=== PATIENT | male | born 1995 | race Caucasian/White ===

== ENCOUNTER 2019-06-11 06:29 | Emergency (ER) | payer BC ==
--- NOTE | 2019-06-11 07:12 | EDM.PDOC ---
ED HPI GENERAL MEDICAL PROBLEM - General Chief Complaint: Gastrointestinal Problem Stated Complaint: COUGHING, VOMITING, BLOOD IN STOOL Time Seen by Provider: 06/11/19 07:09 - History of Present Illness INITIAL COMMENTS - FREE TEXT/NARRATIVE: HIST rule outr/oORY AND PHYSICAL: History of present illness: Patient is a 24-year-old white male presents with a concern of rectal bleeding is been without associated pain he was diagnosed recently with sinusitis and put on amoxicillin he's not any prior episodes he denies intermittent constipation diarrhea Review of systems: As per history of present illness and below otherwise all systems reviewed and negative. Past medical history: As per history of present illness and as reviewed below otherwise noncontributory. Surgical history: As per history of present illness and as reviewed below otherwise noncontributory. Social history: No reported history of drug or alcohol abuse. Family history: As per history of present illness and as reviewed below otherwise noncontributory. Physical exam: HEENT: Atraumatic, normocephalic, pupils reactive, negative for conjunctival pallor or scleral icterus, mucous membranes moist, throat clear, neck supple, nontender, trachea midline. Lungs: Clear to auscultation, breath sounds equal bilaterally, chest nontender. Heart: S1S2, regular, negative for clicks, rubs, or JVD. Abdomen: Soft, nondistended, nontender. Negative for masses or hepatosplenomegaly. Negative for costovertebral tenderness. Pelvis: Stable nontender. Genitourinary: Deferred. Rectal: Deferred. Extremities: Atraumatic, negative for cords or calf pain. Neurovascular unremarkable. Neuro: Awake, alert, oriented. Cranial nerves II through XII unremarkable. Cerebellum unremarkable. Motor and sensory unremarkable throughout. Exam nonfocal. Diagnostics: CBC CMP PT/INR influenza screen chest x-ray Hemoccult Therapeutics: None Impression: #1 r/o rectal bleeding #2 history of sinusitis Definitive disposition and diagnosis as appropriate pending reevaluation and review of above. - Related Data Allergies Allergy/AdvReac Type Severity Reaction Status Date / Time No Known Allergies Allergy Verified 06/11/19 06:43 Home Meds: Home Meds Amoxicillin 0 mg PO BID 06/11/19 [History] Benzonatate [Tessalon Perle] 100 mg PO ASDIRECTED 06/11/19 [History] Past Medical History - Past Health History Medical/Surgical History: Denies Medical/Surgical History HEENT History: Reports: None Cardiovascular History: Reports: None Respiratory History: Reports: None Genitourinary History: Reports: None Musculoskeletal History: Reports: None Neurological History: Reports: None Psychiatric History: Reports: None Endocrine/Metabolic History: Reports: None - Infectious Disease History Infectious Disease History: Reports: Chicken Pox, MRSA Social & Family History - Family History Family Medical History: Noncontributory - Tobacco Use Smoking Status *Q: Current Some Day Smoker Years of Tobacco use: 5 Packs/Tins Daily: 0.5 - Recreational Drug Use Recreational Drug Use: No ED ROS GENERAL - Review of Systems Review Of Systems: Comprehensive ROS is negative, except as noted in HPI. ED EXAM, GENERAL - Physical Exam Exam: See Below (See dictation) Course - Vital Signs Last Recorded V/S: Last Vital Signs Temp 36.2 C 06/11/19 06:45 Pulse 80 06/11/19 06:45 Resp 18 06/11/19 06:45 BP 101/56 L 06/11/19 06:45 Pulse Ox 98 06/11/19 06:45 - Orders/Labs/Meds Orders: Active Orders 24 hr Category Date Time Status Fecal Occult Blood Collection [RC] ASDIRECTED Care 06/11/19 07:09 Active Chest 1V Frontal [CR] Stat Exams 06/11/19 07:09 Ordered COMPREHENSIVE METABOLIC PN,CMP [CHEM] Stat Lab 06/11/19 07:18 Received INFLUENZA A+B AG SCREEN [RM] Stat Lab 06/11/19 07:14 Received INR,PT,PROTHROMBIN TIME [COAG] Stat Lab 06/11/19 07:18 Received Labs: Laboratory Tests 06/11/19 Range/Units 07:18 WBC 9.23 (4.0-11.0) K/uL RBC 4.52 (4.50-5.90) M/uL Hgb 13.7 (13.0-17.0) g/dL Hct 39.6 (38.0-50.0) % MCV 87.6 (80.0-98.0) fL MCH 30.3 (27.0-32.0) pg MCHC 34.6 (31.0-37.0) g/dL RDW Std Deviation 41.2 (28.0-62.0) fl RDW Coeff of Lizbet 13 (11.0-15.0) % Plt Count 256 (150-400) K/uL MPV 9.80 (7.40-12.00) fL Neut % (Auto) 57.8 (48.0-80.0) % Lymph % (Auto) 28.9 (16.0-40.0) % Day % (Auto) 11.3 (0.0-15.0) % Eos % (Auto) 1.7 (0.0-7.0) % Baso % (Auto) 0.3 (0.0-1.5) % Neut # (Auto) 5.3 (1.4-5.7) K/uL Lymph # (Auto) 2.7 H (0.6-2.4) K/uL Day # (Auto) 1.0 H (0.0-0.8) K/uL Eos # (Auto) 0.2 (0.0-0.7) K/uL Baso # (Auto) 0.0 (0.0-0.1) K/uL Nucleated RBC % 0.0 /100WBC Nucleated RBCs # 0 K/uL Departure - Departure Time of Disposition: 07:27 Disposition: Home, Self-Care 01 Condition: Good Clinical Impression: Encounter for medical screening examination, History of sinusitis - Discharge Information Referrals: PCP,None [Primary Care Provider] - Forms: ED Department Discharge Additional Instructions: The following information is given to patients seen in the emergency department who are being discharged to home. This information is to outline your options for follow-up care. We provide all patients seen in our emergency department with a follow-up referral. The need for follow-up, as well as the timing and circumstances, are variable depending upon the specifics of your emergency department visit. If you don't have a primary care physician on staff, we will provide you with a referral. We always advise you to contact your personal physician following an emergency department visit to inform them of the circumstance of the visit and for follow-up with them and/or the need for any referrals to a consulting specialist. The emergency department will also refer you to a specialist when appropriate. This referral assures that you have the opportunity for followup care with a specialist. All of these measure are taken in an effort to provide you with optimal care, which includes your followup. Under all circumstances we always encourage you to contact your private physician who remains a resource for coordinating your care. When calling for followup care, please make the office aware that this follow-up is from your recent emergency room visit. If for any reason you are refused follow-up, please contact the [facility] emergency department at and asked to speak to the emergency department charge nurse. Continue current medications as previously prescribed push fluids follow primary medical doctor as needed as discussed return as needed as discussed - My Orders Last 24 Hours: My Active Orders 06/11/19 07:09 Fecal Occult Blood Collection [RC] ASDIRECTED Chest 1V Frontal [CR] Stat 06/11/19 07:14 INFLUENZA A+B AG SCREEN [RM] Stat 06/11/19 07:18 COMPREHENSIVE METABOLIC PN,CMP [CHEM] Stat INR,PT,PROTHROMBIN TIME [COAG] Stat - Assessment/Plan Last 24 Hours: My Active Orders 06/11/19 07:09 Fecal Occult Blood Collection [RC] ASDIRECTED Chest 1V Frontal [CR] Stat 06/11/19 07:14 INFLUENZA A+B AG SCREEN [RM] Stat 06/11/19 07:18 COMPREHENSIVE METABOLIC PN,CMP [CHEM] Stat INR,PT,PROTHROMBIN TIME [COAG] Stat
[2019-06-11 07:53] LABS: BLOOD UREA NITROGEN,BUN 9 mg/dL (7.0-18.0); CARBON DIOXIDE,CO2 28.3 mmol/L (21.0-32.0); CHLORIDE,CL 104 mmol/L (98-107); GLUCOSE RANDOM 93 mg/dL (74-106); SODIUM,NA 141 mmol/L (136-148)
--- NOTE | 2019-06-11 07:58 | CR ---
Indication: Bloody stool. Technique: A single AP portable view of the chest. Comparison: None Findings: The heart is normal in size. The lungs are clear. No infiltrate, pleural effusion, or pneumothorax is identified. Impression: No acute cardiopulmonary process Dictated by Claudette Pepper MD @ Jun 11 2019 7:56AM Signed by Dr. Claudette Pepper @ Jun 11 2019 7:56AM
== END 2019-06-11 08:05 | disposition home or self-care (01) ==
LOC: MW.ED 06:29
DX: Z03.89 Encounter for observation for other suspected diseases and conditions ruled out (principal); F17.210 Nicotine dependence, cigarettes, uncomplicated
CPT/HCPCS: 36415; 71045; 71045-26; 80053; 85025; 85610; 87804; 99283-25